=== PATIENT | male | born 1960 | race Caucasian/White ===

== ENCOUNTER → 2019-10-21 08:57 | Outpatient (CLI) | payer OTHER, SELFPAY ==
[2019-10-21 21:21] LABS: COVID19 Sendout Not Detected (Not Detect)
== END ==
PROVIDERS: Visit Provider Registered Nurse
DX: Z01.812 Encounter for preprocedural laboratory examination (principal)
CPT/HCPCS: 87635

== ENCOUNTER 2019-10-26 09:01 | Day surgery (SDC) | payer OTHER, SELFPAY ==
[2019-10-20 11:15] VITALS: BMI 25.0
[2019-10-26] VITALS (9 sets, daily range): BP systolic 136–199; BP diastolic 85–116; PULSE 77–89; RESP 12–20; TEMP 36.2–36.8; O2SAT 16–99; BMI 25.0
--- NOTE | 2019-10-26 | PATH_ITS ---
[facility] Accession Number: [id number] . 01 Material submitted: . hernia - HERNIA SAC . 01 Clinical history: . OPEN RIH REPAIR . 02 Diagnosis: Hernia Sac, Right Inguinal Hernia Repair: Fibroconnective and fibromuscular tissue, consistent with hernia sac. Negative for atypia or malignancy. [facility] 10/28/2019 1318 Local . 02 Electronically signed: . Nimco Glass MD, Pathologist NPI- [id number] . 01 Gross description: . HERNIA SAC: Received in formalin is 1 piece of goodwin soft tissue measuring 1.5 x 1.4 x 0.2 cm. Tissue is inked. Specimen is submitted in its entirety in 1 cassette. /[facility] 10/27/2019 1031 Local . 02 Pathologist provided ICD-10: K40.90 . 02 CPT . 627978 Performed at: 01 [facility] [address] [facility], [place], [place] [id number] MD Jim Pierre MD Phone: [phone] Performed at: 02 [facility] [address] [place], [place] [id number] MD Michelle Hernandez MD Phone: [phone]
[2019-10-26] MEDS: LACTATED RINGERS 1,000 ML 100 ML IV (09:17)
--- NOTE | 2019-10-26 09:46 | SUR.PREOP ---
Patient had a vagal reaction after IV insertion. Placed patient supine and rechecked vital signs. Denies nausea or sob. Patient recovered without difficulty. Warm blanket provided.
--- NOTE | 2019-10-26 11:03 | PM.PREOP ---
Pre-operative Note COVID-19 COVID-19 status: Negative Result date/Date tested (Pos, Neg/Pending): 10/21/19 Interval Note History & Physical reviewed/Exam performed by Physician: Yes Changes to H&P: No
[2019-10-26] MEDS: CEFAZOLIN 2 GM/100 ML FROZ.PIGGY IV (12:00)
--- NOTE | 2019-10-26 12:20 | SUR.OPER ---
Supine on padded OR bed, head on pillow, arms secured on padded arm boards at <90 degrees abduction, legs uncrossed, safety belt at thigh, tape over blanket over lower legs.
[2019-10-26] MEDS: BUPIVACAINE 0.25% (PF) VIAL 30 ML INJ (12:24)
--- NOTE | 2019-10-26 13:12 | PM.OP.1 ---
Operative Date/Time/Diagnoses Date of procedure: 10/26/19 Time of procedure: 13:12 Pre-op diagnosis: Right inguinal hernia Post-op diagnosis: same Procedure & Clinicians Procedure: Open right inguinal hernia repair with mesh Same procedure as scheduled: Yes Indications: Symptomatic right inguinal hernia Surgeon: Chetan Hutchinson Yes if Unassisted: Yes Anesthesia Type: General Operative Notes Findings: Small indirect defect, large floor/direct defect Specimen(s): other (Hernia sac) Estimated Blood Loss (mL): 15 Procedure in detail: The patient was brought to the operating room and placed supine on the table. Bilateral lower extremity compression devices were applied. General anesthesia was induced and there were intubated with an LMA. There were then prepped and draped in usual sterile fashion. They received 2 g of Ancef prior to skin incision. A time-out was performed ensure the correct patient procedure necessary equipment within the operating room. 2 finger breath above the right inguinal ligament the skin was infiltrated with 0.25% bupivacaine. The skin incision was made here and the subcutaneous tissues were divided with electrocautery. The external oblique aponeurosis was exposed. The external oblique aponeurosis was then opened along the direction of its fibers. The ilioinguinal nerve was identified on the anterior aspect of the cord and protected. The cord was identified and was freed from the floor of the inguinal canal at its medial aspect. The cord was then swept swept out of the way with the Lamont drain. A direct floor defect was identified. The cord was then skeletonized. The vas deferens and the testicular vessels were preserved and protected. There was an indirect hernia on the anterior medial aspect of the cord which was skeletonized away from the vas deferens and testicular blood supply. This indirect hernia was skeletonized back to the internal ring. The hernia sac was ligated with 3 0 Vicryl and then excised passed off the field as specimen, the proximal hernia sac reduced easily back through the internal ring. I selected the medium Pro Loop hernia mesh. The inferior medial aspect of the mesh was anchored to the periosteum of the pubic tubercle with 0 Prolene and then was run continuously along the inferior edge of the mesh to the shelving edge of the inguinal ligament. Interrupted 0 Prolene suture was used to anchor the superior aspect of the mesh to the conjoined tendon in several places. The tails were then reapproximated around the spermatic cord loosely. The tails of the mesh were then tucked under the external oblique aponeurosis. The repair was checked for hemostasis. The wound was irrigated with sterile saline. The external oblique aponeurosis was reapproximated in a running fashion using 3 0 Vicryl. The subcutaneous tissues were reapproximated with 3 0 Vicryl skin closed with 4 0 Monocryl followed by the application of Dermabond. At the end of the operation ensure that both testicles were within the scrotum. The sponge instrument count at the end operation was correct. The patient emerged from anesthesia was extubated and transferred to the postoperative care unit in stable condition Complications: none Post-operative Condition: stable Disposition: same day surgery
[2019-10-26] MEDS: KETOROLAC 30 MG/ML VIAL IV (13:25)
[2019-10-26] MEDS: METOPROLOL TARTRATE 5 MG/5 ML INJ IV (13:48)
--- NOTE | 2019-10-26 13:57 | SUR.PHASEI ---
1348 late entry: patient with BP of 204/113, MAPof 146. Patient asymptomatic. Notified Dr Martin. Orders received for Metoprolol received.
== END 2019-10-26 14:38 | disposition home or self-care (01) ==
PROVIDERS: Referring Provider Surgery; Visit Provider Surgery
PROC: (CPT 49505; principal; 2019-10-26 10:45)
DX: K40.90 Unilateral inguinal hernia, without obstruction or gangrene, not specified as recurrent (principal)
CPT/HCPCS: 49505; C1781; J0690; J1100; J1885; J2250; J2405; J2704; J3010

== ENCOUNTER 2020-04-12 08:58 | Emergency (ER) | payer OTHER, SELFPAY ==
[2020-04-12 09:12] VITALS: BP 186/108; PULSE 94; RESP 18; TEMP 36.4; O2SAT 97; BMI 26.4
[2020-04-12 09:14] VITALS: PULSE 93; O2SAT 98
[2020-04-12 09:30] VITALS: BP 172/107; PULSE 84; O2SAT 96
--- NOTE | 2020-04-12 09:35 | ED_ITS ---
HPI - Skin/Abscess/Foreign Bdy General Chief complaint: Skin/Abscess/Foreign Body Stated complaint: rash on both hands and feet x2 weeks Time Seen by Provider: 04/12/20 09:29 Source: patient Mode of arrival: Ambulatory Limitations: no limitations History of Present Illness HPI narrative: This is a 60-year-old male who comes to the emergency department with complaint of rash on the a palms and soles of his feet for approximately 8 months. Patient noted that started after he had surgery about 8 months ago. He had a hernia repair. Patient states that it seems like it showed up all of the sudden but he is unsure because it has been so long ago that the rash began. He states it has increased in size. It has become more painful. It started on his hands but he also noted on his feet eventually. He denies fevers, chills, no rash elsewhere, he denies any vision changes, no difficulty with speech, no chest pain or shortness of breath no other GI or urinary symptoms. Patient has not had similar rashes in the past. 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 He has not tried over the counter medications other than Neosporin or seen anyone for this. He denies any other medical issues, he does not follow regularly with a physician. He has had multiple orthopedic surgeries remotely. He denies any allergies to medications. No tobacco, no alcohol, occasional THC. Related Data Previous Rx's Medication Instructions Recorded acetaminophen [Tylenol] 650 mg PO QID PRN #60 cap 10/26/19 docusate sodium [Colace] 100 mg PO BID #30 cap 10/26/19 ibuprofen 800 mg PO Q6H PRN #60 tab 10/26/19 oxycodone 5 mg PO Q6H PRN #30 tab 10/26/19 clotrimazole 1 applictn TOP BID 28 Days #1 gram 04/12/20 doxycycline hyclate 100 mg PO BID #14 cap 04/12/20 terbinafine HCl 250 mg PO DAILY #30 tab 04/12/20 Allergies Allergy/AdvReac Type Severity Reaction Status Date / Time No Known Drug Allergies Allergy Verified 11/10/19 11:50 Review of Systems Review of Systems ROS Unobtainable: All systems reviewed & are unremarkable except as noted in HPI and below Patient History Medical History Chicken pox (Resolved) Elevated blood pressure reading in office without diagnosis of hypertension (Acute) Right inguinal hernia (Acute) Surgical History History of surgery (Acute 2015) Social History household members: none Smoking Status: Former smoker alcohol intake: current substance use type: marijuana Smoking Status: Former smoker Substance Use Type: marijuana Exam Narrative Exam Narrative: GEN: well nourished, well appearing male, alert and oriented x 3, patient appears to be in mild distress. Patient appears older than stated age. HEENT: Atraumatic, pupils are equal round reactive to light, extraocular movements are intact, nares are clear. HEART: Regular rate and rhythm without murmur, clicks, rubs. LUNGS:Lungs clear to auscultation, no wheezes, rales, crackles, chest moves symmetrically ABD:bowel sounds normal, soft, non-tender, no guarding, rebound, rigidity, no masses noted, no hepatosplenomegaly MSCL: Non-tender, full range of motion, normal gait NEURO:CN 2-12 intact, sensation normal SKIN: Patient has patchy plaques with cracking on the palms and soles of feet. Covers 3/4 of the palm, plaque peers to be lying on top of the skin there is some mild erythema on the edges. Does not extend beyond the palm. There is no discharge, foul odor or drainage. There are no vesicles. On the feet the majority of the rash is noted on the heels and mid foot and has a clear erythematous linear demarcation. Centralized there are plaques that are non erythematous with multiple areas of cracking. There is no drainage foul odor or discharge noted. Patient is only mildly tender to palpation. There is no rash elsewhere noted on body. Initial Vital Signs Initial Vital Signs: Vital Signs Temperature 97.6 F 04/12/20 09:12 Pulse Rate 94 H 04/12/20 09:12 Respiratory Rate 18 04/12/20 09:12 Blood Pressure 186/108 H 04/12/20 09:12 Pulse Oximetry 97 04/12/20 09:12 Course Orders Ordered: ED Orders 04/12/20 10:17 Complete Blood Count AUTO DIFF Stat Comprehensive Metabolic Panel Stat RPR W Reflex to Titer Stat Discontinued Medications Aspirin (Aspirin) 325 mg PO NOW ONE Stop: 04/12/20 10:29 Last Admin: 04/12/20 10:34 Dose: 325 mg Documented by: DARWIN Vital Signs Vital signs: Vital Signs - 8 hr 04/12/20 11:15 Pulse Rate 88 Respiratory Rate 18 Blood Pressure 171/106 H Pulse Oximetry 100 MDM - Skin/Abscess/Foreign Bdy Lab Data Result diagrams: 04/12/20 10:17 04/12/20 10:17 Labs: Lab Results 04/12/20 04/12/20 04/12/20 Range/Units 10:17 10:17 10:17 WBC 7.2 (4.5-11.0) X10^3/uL RBC 5.72 (4.5-5.9) X10^6/uL Hgb 17.3 (13.5-17.5) g/dL Hct 49.7 (41-53) % MCV 86.8 (80-100) fL MCH 30.3 (26-34) PG MCHC 34.9 (30-36) % RDW 13.2 (11.6-14.8) % Plt Count 204 (150-400) X10^3/uL Neut % (Auto) 80.0 H (50-75) % Lymph % (Auto) 12.4 L (25-40) % [facility] % (Auto) 7.0 (3-14) % Eos % (Auto) 0.3 L (2-4) % Baso % (Auto) 0.3 (0-2) % Neut # (Auto) 5800 (8169-7129) /uL Lymph # (Auto) 900 L (6995-9536) /uL [facility] # (Auto) 500 (0-900) /uL Eos # (Auto) 0 (0-450) /uL Baso # (Auto) 0 (0-100) /uL Sodium 138 (137-145) mmol/L Potassium 4.4 (3.4-5.1) mmol/L Chloride 103 (98-107) mmol/L Carbon Dioxide 27 (22-32) mmol/L BUN 22 H (9-20) mg/dL Creatinine 0.91 (0.66-1.25) mg/dL Estimated GFR > 60.0 (>60) mL/min BUN/Creatinine Ratio 24.2 H (6-22) Glucose 106 (80-110) mg/dL Calcium 10.1 (8.4-10.2) mg/dL Total Bilirubin 1.1 (0.2-1.3) mg/dL AST 36 (17-59) IU/L ALT 22 (<50) IU/L Alkaline Phosphatase 105 (38-126) U/L Total Protein 8.7 H (6.3-8.2) g/dL Albumin 5.0 (3.5-5.0) g/dL Globulin 3.7 (1.7-4.1) g/dL Albumin/Globulin Ratio 1.4 (1.0-2.8) Treponema pallidum Ab Cancelled MDM Narrative Medical decision making narrative: I suspect patient has a fungal infection with overlying bacterial infection that has developed secondary to the cracks in his skin. There is potential full or other causes and a RPR was sent. Labs were ordered as his rash appears sufficiently severe that topical medication likely will not be adequate. Discharge Plan Departure Patient Disposition: Home Clinical Impression: Rash of both hands, Rash of both feet Discharge Date/Time: 04/12/20 11:19 Activity Restrictions/Additional Instructions: Follow-up in the next 2-4 weeks for recheck. The medications that you have been started on can cause liver problems so it is important that she follow up and make sure your labs are rechecked. You can return to the ER or follow up with primary care. [phone] is the primary care provider access number and they can help set you up with a primary care locally. You do have 1 lab pending, if this is positive you will be contacted for further evaluation. Take antifungal medication as prescribed. Use topical antifungal cream twice daily for 4 weeks or 1 week after your rash has resolved. You have also been prescribed an antibiotic as I suspect to have a bacterial infection along with your fungal infection. Keep skin dry, change socks daily or more frequently if your feet are wet. Return to the ER for fevers, worsening rash, headaches, vision changes, difficulty with speech, movement, persistent vomiting, jaundice or yellow skin or eye color changes, abdominal pain, itching throughout your body, or other new or concerning symptoms. Prescriptions: New clotrimazole 1 % cream 1 applictn TOP BID 28 Days Qty: 1 RF: 0 doxycycline hyclate 100 mg capsule 100 mg PO BID Qty: 14 RF: 0 terbinafine HCl 250 mg tablet 250 mg PO DAILY Qty: 30 RF: 0 No Action ibuprofen 200 mg tablet 800 mg PO Q6H PRN (Reason: pain) Qty: 60 RF: 0 docusate sodium [Colace] 100 mg capsule 100 mg PO BID Qty: 30 RF: 0 acetaminophen [Tylenol] 325 mg capsule 650 mg PO QID PRN (Reason: pain) Qty: 60 RF: 0 oxycodone 5 mg tablet 5 mg PO Q6H PRN (Reason: pain) Qty: 30 RF: 0 Referrals: Lloyd Dietrich DO [Primary Care Provider] -
--- NOTE | 2020-04-12 09:48 | PC.NURSE ---
Patient presents with pain in both feet and palms of both hands. Palm of hands have deep cracks. Both heels white, calloused deep cracks with surrounding area of redness. Patient states it has progressively gotten worse over the last 8months. Cracks on feet have began to bleed and become more painful
[2020-04-12 10:32] LABS: Add Manual Diff / Slide Review NO; Basophils Absolute Auto 0 /uL (0-100); Basophils Percent Auto 0.3 % (0-2); Eosinophils Absolute Auto 0 /uL (0-450); Eosinophils Percent Auto 0.3 % (2-4); Hematocrit 49.7 % (41-53); Hemoglobin 17.3 g/dL (13.5-17.5); Lymphocytes Absolute Auto 900 /uL (1100-4500); Lymphocytes Percent Auto 12.4 % (25-40); Mean Corpuscular HGB Conc 34.9 % (30-36); Mean Corpuscular Hemoglobin 30.3 PG (26-34); Mean Corpuscular Volume 86.8 fL (80-100); Monocytes Absolute Auto 500 /uL (0-900); Neutrophils Absolute Auto 5800 /uL (1500-7000); Platelet Count 204 X10^3/uL (150-400); Red Blood Cell Count 5.72 X10^6/uL (4.5-5.9); Red Cell Distribution Width 13.2 % (11.6-14.8); White Blood Cell Count 7.2 X10^3/uL (4.5-11.0)
[2020-04-12] MEDS: ASPIRIN 325 MG TABLET PO (10:34)
[2020-04-12 10:44] LABS: Alanine Aminotransferase 22 IU/L (<50); Albumin Globulin Ratio 1.4 (1.0-2.8); Alkaline Phosphatase 105 U/L (38-126); Aspartate Aminotransferase 36 IU/L (17-59); BUN Creatinine Ratio 24.2 (6-22); Bilirubin Total 1.1 mg/dL (0.2-1.3); Blood Urea Nitrogen 22 mg/dL (9-20); Calcium 10.1 mg/dL (8.4-10.2); Carbon Dioxide 27 mmol/L (22-32); Chloride 103 mmol/L (98-107); Estimated Glomerular Filt Rate > 60.0 mL/min (>60); Globulin 3.7 g/dL (1.7-4.1); Glucose 106 mg/dL (80-110); HEMOLYSIS < 15 (0-50); Potassium 4.4 mmol/L (3.4-5.1); Sodium 138 mmol/L (137-145); Total Protein 8.7 g/dL (6.3-8.2)
[2020-04-12 11:15] VITALS: BP 171/106; PULSE 88; RESP 18; O2SAT 100
[2020-04-13 04:36] LABS: RPR Screen Non Reactive (Non Reactive)
== END 2020-04-12 11:19 | disposition home or self-care (01) ==
PROVIDERS: Emergency Provider Emergency Medicine; PCP Family Medicine
DX: R21 Rash and other nonspecific skin eruption (principal)
CPT/HCPCS: 36415; 80053; 85025; 86592; 99283

== ENCOUNTER 2020-12-07 09:35 | Emergency (ER) | payer OTHER, SELFPAY ==
[2020-12-07 10:53] VITALS: BP 210/102; PULSE 68; RESP 18; TEMP 36.6; O2SAT 99; BMI 22.4
[2020-12-07 11:51] LABS: Add Manual Diff / Slide Review NO; Basophils Absolute Auto 0 /uL (0-100); Eosinophils Absolute Auto 0 /uL (0-450); Lymphocytes Absolute Auto 1400 /uL (1100-4500); Lymphocytes Percent Auto 17.5 % (25-40); Monocytes Absolute Auto 600 /uL (0-900); Platelet Count 212 X10^3/uL (150-400)
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
--- NOTE | 2020-12-07 12:01 | DI.CT.S_ITS ---
PROCEDURE: CT ABDOMEN PELVIS W CON INDICATIONS: vomiting, no BM. RLQ pain, TECHNIQUE: After the administration of intravenous contrast, axial sections acquired from the lung bases to the pubic symphysis. Coronal and sagittal reformats were performed. For radiation dose reduction, the following was used: automated exposure control, adjustment of mA and/or kV according to patient size. COMPARISON: None. FINDINGS: ABDOMEN: Lung bases: Normal. Heart: No significant findings. Liver: Hepatic steatosis. Gallbladder: Normal. Bile ducts: Normal. Pancreas: Normal. Spleen: Normal. Adrenals: Normal. Kidneys and Ureters: Normal. Stomach and duodenum: Normal. Bowel: Appendix is not clearly identified however no suspicious pericecal inflammatory changes are seen. No evidence of bowel obstruction. Mild to moderate stool. Colonic diverticula are present. There is long segment sigmoid colonic wall thickening Other: No free fluid or air. Abdominal nodes: Normal. Aorta and IVC: Normal in size. Scattered vascular calcifications. Ventral wall: Normal. PELVIS: Bladder: Normal. Inguinal region: No hernia. Pelvic nodes: Normal. Bones: Spondylytic changes and facet arthropathy. No vertebral body compression fracture. Prominent L5-S1 spondylosis with vacuum disc phenomenon, which also involves the inferior endplate of L5. IMPRESSION: No specific evidence of bowel obstruction seen at this time although if the patient's symptoms do not improve, continued surveillance with abdominal series radiographs could be performed. Long segment sigmoid colonic wall thickening suggestive of acute inflammatory or infectious colitis. Acute diverticulitis is in the differential however a focally inflamed diverticulum is not identified. Please correlate clinically. Follow-up with lower endoscopy could be performed to exclude colonic neoplasm on the basis of clinical suspicion, or screening criteria. Appendix is not clearly identified however no suspicious pericecal inflammatory changes are seen. Hepatic steatosis Dictated by: Mckay Preston M.D. on 12/07/2020 at 12:47 Approved by: Mckay Preston M.D. on 12/07/2020 at 12:58
[2020-12-07 12:09] LABS: HEMOLYSIS < 15 (0-50)
[2020-12-07 12:10] LABS: Alanine Aminotransferase 22 IU/L (<50); Albumin 4.8 g/dL (3.5-5.0); Albumin Globulin Ratio 1.5 (1.0-2.8); Alkaline Phosphatase 80 U/L (38-126); Aspartate Aminotransferase 40 IU/L (17-59); BUN Creatinine Ratio 19.8 (6-22); Bilirubin Total 1.7 mg/dL (0.2-1.3); Blood Urea Nitrogen 19 mg/dL (9-20); Calcium 9.8 mg/dL (8.4-10.2); Carbon Dioxide 25 mmol/L (22-32); Chloride 105 mmol/L (98-107); Estimated Glomerular Filt Rate > 60.0 mL/min (>60); Globulin 3.2 g/dL (1.7-4.1); Glucose 102 mg/dL (80-110); Lipase 71 U/L (23-300); Sodium 139 mmol/L (137-145)
[2020-12-07 12:12] LABS: Bacteria Urine None Seen; RBC Urine None Seen (0-5/HPF); WBC Urine None Seen (0-5/HPF)
[2020-12-07] MEDS: SODIUM CHLORIDE 0.9% 1,000 ML 1000 ML IV (12:16)
[2020-12-07 12:28] LABS: Mucus Urine 1+ (Negative)
[2020-12-07 12:29] LABS: Culture Indicated Urine Cult Not Indicated
[2020-12-07 12:50] LABS: Basophils Percent Auto 0.4 % (0-2); Eosinophils Percent Auto 0.3 % (2-4); Hematocrit 48.4 % (41-53); Hemoglobin 16.6 g/dL (13.5-17.5); Mean Corpuscular HGB Conc 34.2 % (30-36); Mean Corpuscular Hemoglobin 29.7 PG (26-34); Mean Corpuscular Volume 86.9 fL (80-100); Monocytes Percent Auto 7.5 % (3-14); Neutrophils Absolute Auto 6000 /uL (1500-7000); Neutrophils Percent Auto 74.3 % (50-75); Red Blood Cell Count 5.57 X10^6/uL (4.5-5.9); Red Cell Distribution Width 13.4 % (11.6-14.8); White Blood Cell Count 8.1 X10^3/uL (4.5-11.0)
--- NOTE | 2021-01-19 13:53 | PC.NURSE ---
late entry- per RN IV fluids DC'd at 1300 priolr to discharge
== END 2020-12-07 13:17 | disposition home or self-care (01) ==
PROVIDERS: Emergency Provider Emergency Medicine; PCP Family Medicine
DX: K52.9 Noninfective gastroenteritis and colitis, unspecified (principal); R11.2 Nausea with vomiting, unspecified; E80.7 Disorder of bilirubin metabolism, unspecified
CPT/HCPCS: 36415; 74177; 80053; 81003; 81015; 83690; 85025; 93005; 96360; 99284

== ENCOUNTER → 2024-05-13 10:49 | Outpatient (CLI) | payer OTHER, SELFPAY ==
--- NOTE | 2024-05-13 10:50 | DI.RAD.S_ITS ---
PROCEDURE: XR CERVICAL SPINE 4V OR 5V INDICATIONS: Cervical neck pain and radiculopathy TECHNIQUE: 5 views of the cervical spine were acquired. COMPARISON: None. FINDINGS: Bones: No fractures or dislocations to the T1 level. No suspicious bony lesions. Note is made of slight anterolisthesis grade 1 of C3 on C4 and [id number] degenerative disc height reduction and changes at C4-5 and C5-6. Slight increased anterolisthesis is seen at C3-4 during flexion imaging. No fracture found. There is normal range of motion between flexion and extension, with preserved normal bony alignment. Soft tissues: Prevertebral soft tissues are normal in thickness. IMPRESSION: Anterolisthesis at C3-4 that increases, grade 1, during flexion imaging. Degenerative disc disease as discussed immediately below. No trauma found. Dictated by: Jus Belle M.D. on 05/13/2024 at 11:11 Approved by: Jus Belle M.D. on 05/13/2024 at 11:12
== END ==
LOC: RAD 10:50
PROVIDERS: PCP Family Medicine; Referring Provider Physician Assistant Surgical; Visit Provider Physician Assistant Surgical
DX: M50.121 Cervical disc disorder at C4-C5 level with radiculopathy (principal); M43.12 Spondylolisthesis, cervical region
CPT/HCPCS: 72050

== ENCOUNTER → 2024-10-05 12:31 | Outpatient (CLI) | payer OTHER, SELFPAY ==
[2024-10-05 13:11] LABS: Add Manual Diff / Slide Review NO; Basophils Absolute Auto 0 /uL (0-100); Basophils Percent Auto 0.5 % (0-2); Eosinophils Absolute Auto 100 /uL (0-450); Eosinophils Percent Auto 1.8 % (2-4); Hematocrit 44.7 % (41-53); Hemoglobin 15.6 g/dL (13.5-17.5); Lymphocytes Absolute Auto 2200 /uL (1100-4500); Mean Corpuscular HGB Conc 34.8 % (30-36); Mean Corpuscular Hemoglobin 30.7 PG (26-34); Mean Corpuscular Volume 88.3 fL (80-100); Monocytes Absolute Auto 800 /uL (0-900); Monocytes Percent Auto 10.2 % (3-14); Neutrophils Absolute Auto 4400 /uL (1500-7000); Neutrophils Percent Auto 58.5 % (50-75); Platelet Count 214 X10^3/uL (150-400); Red Blood Cell Count 5.06 X10^6/uL (4.5-5.9); Red Cell Distribution Width 13.2 % (11.6-14.8); White Blood Cell Count 7.5 X10^3/uL (4.5-11.0)
[2024-10-05 13:42] LABS: Alanine Aminotransferase 20 IU/L (<50); Albumin 4.3 g/dL (3.5-5.0); Albumin Globulin Ratio 1.7 (1.0-2.8); Alkaline Phosphatase 66 U/L (38-126); Aspartate Aminotransferase 30 IU/L (17-59); BUN Creatinine Ratio 25.5 (6-22); Bilirubin Total 1.1 mg/dL (0.2-1.3); Blood Urea Nitrogen 26 mg/dL (9-20); Calcium 9.6 mg/dL (8.4-10.2); Carbon Dioxide 29 mmol/L (22-32); Chloride 101 mmol/L (98-107); Cholesterol 171 mg/dL (140-199); Estimated Glomerular Filt Rate > 60 mL/min (>60); Globulin 2.5 g/dL (1.7-4.1); Glucose 95 mg/dL (70-99); HDL Cholesterol 49 mg/dL (40-60); HEMOLYSIS < 15 (0-50); LDL Cholesterol Calculated 95 mg/dL (<100); Potassium 5.1 mmol/L (3.4-5.1); Sodium 136 mmol/L (137-145); Total Protein 6.8 g/dL (6.3-8.2); Triglycerides 133 mg/dL (35-150)
[2024-10-05 14:09] LABS: Prostate Specific Antigen Scrn 1.58 ng/mL (0.1-4.0)
== END ==
PROVIDERS: PCP Family Medicine; Referring Provider Family Medicine; Visit Provider Family Medicine
DX: I10 Essential (primary) hypertension (principal); Z12.5 Encounter for screening for malignant neoplasm of prostate; Z13.220 Encounter for screening for lipoid disorders
CPT/HCPCS: 36415; 80053; 80061; 85025; G0103